=== PATIENT | female | born 1975 | race Two or more races ===

== ENCOUNTER 2018-01-07 22:02 | Emergency (ER) | payer SELFPAY ==
[~2018-01-07] VITALS: Ht 170.2 cm; Wt 108.9 kg
[2018-01-07 22:27] VITALS: BP 146/98
[2018-01-08] MEDS ORDERED: DEXAMETHASONE SOD PHOS 10MG/1ML VIAL INJ IM ONE (03:15)
[2018-01-08] MEDS ORDERED: cefTRIAXone SOD 1,000 MG VL IM ONE (03:15)
== END 2018-01-08 03:34 | disposition home or self-care (01) ==
LOC: ER 22:02
DX: J39.2 Other diseases of pharynx (principal); J02.9 Acute pharyngitis, unspecified; R09.81 Nasal congestion; E11.9 Type 2 diabetes mellitus without complications; I10 Essential (primary) hypertension
CPT/HCPCS: 71045; 81025; 82962; 96372; 99285; J0696; J1100

== ENCOUNTER 2023-08-14 09:06 | Emergency (ER) | payer MEDICAID ==
[~2023-08-14] VITALS: Ht 175.3 cm; Wt 90.9 kg
[2023-08-14] MEDS ORDERED: hydrALAZINE HCL 20 MG/ML VL IV ONE (09:30)
[2023-08-14 09:48] VITALS: BP 124/71
[2023-08-14 10:00] LABS: Basophils # (auto) 0.1 10 ^3/uL (0-0.2); Basophils % (auto) 0.8 % (0.0-2.0); Eosinophils # (auto) 0.1 10 ^3/uL (0-0.8); Eosinophils % (auto) 1.3 % (0.0-7.0); Hematocrit 45.1 % (36.0-46.0); Hemoglobin 15.6 g/dL (12.2-16.2); Lymphocytes # (auto) 1.9 10 ^3/uL (0.4-5.4); Lymphocytes % (auto) 28.9 % (10.0-50.0); Mean Corpuscular Hemoglobin 31.9 pg (28.0-32.0); Mean Corpuscular Hgb Conc. 34.6 g/dL (32.0-36.0); Mean Corpuscular Volume 92.4 fL (80.0-100.0); Monocytes # (auto) 0.5 10 ^3/uL (0-1.3); Monocytes % (auto) 7.5 % (0.0-12.0); Neutrophils # (auto) 4.1 10 ^3/uL (1.6-8.6); Neutrophils % (auto) 61.5 % (37.0-80.0); Nucleated Red Blood Cells % 0.1 %; Red Blood Cells 4.88 10^6/uL (4.0-5.20); Red Cell Distribution Width 12.6 % (11.8-14.3); White Blood Cell 6.7 10^3/uL (4.4-10.8)
[2023-08-14 10:21] LABS: Alanine Aminotransferase 21 U/L (7-40); Albumin 4.4 g/dL (3.2-4.8); Alkaline Phosphatase 96 U/L (46-116); Anion Gap 6 (5-15); Aspartate Aminotransferase 14 U/L (13-40); BUN/Creatinine Ratio 20.4 (10.0-20.0); Bilirubin, Total 0.4 mg/dL (0.2-1.0); Blood Urea Nitrogen 11 mg/dL (9-23); Calcium 9.3 mg/dL (8.5-10.1); Carbon Dioxide 27 mmol/L (20-30); Chloride 106 mmol/L (98-107); Glucose 129 mg/dL (74-106); Potassium 4.2 mmol/L (3.5-5.1); Sodium 139 mmol/L (136-145); Total Protein 6.6 g/dL (5.7-8.2)
[2023-08-14 11:30] VITALS: PULSE 68; RESP 17; O2SAT 98
== END 2023-08-14 11:35 | disposition home or self-care (01) ==
LOC: ER 09:06 → EDBD 09:06 → ER 11:35
DX: I16.0 Hypertensive urgency (principal); R42 Dizziness and giddiness; R55 Syncope and collapse; E11.9 Type 2 diabetes mellitus without complications; Z86.73 Personal history of transient ischemic attack (TIA), and cerebral infarction without residual deficits; Z98.51 Tubal ligation status; F17.210 Nicotine dependence, cigarettes, uncomplicated
CPT/HCPCS: 36415; 70450; 71046; 80053; 84484; 85025; 99284; J0360

== ENCOUNTER 2023-08-14 20:04 | Emergency (ER) | payer MEDICAID ==
[~2023-08-14] VITALS: Ht 167.6 cm; Wt 90.9 kg
[2023-08-14 20:16] VITALS: BP 176/96; PULSE 81; RESP 18; O2SAT 97
== END 2023-08-14 23:13 | disposition left against medical advice (07) ==
LOC: EDBD 20:04 → ER 20:07
DX: R51.9 Headache, unspecified (principal); Z53.21 Procedure and treatment not carried out due to patient leaving prior to being seen by health care provider

== ENCOUNTER 2023-08-24 11:08 | Emergency (ER) | payer MEDICAID ==
[~2023-08-24] VITALS: Ht 170.2 cm; Wt 86.3 kg
[2023-08-24 11:53] LABS: Basophils # (auto) 0 10 ^3/uL (0-0.2); Basophils % (auto) 0.4 % (0.0-2.0); Eosinophils # (auto) 0.1 10 ^3/uL (0-0.8); Eosinophils % (auto) 0.9 % (0.0-7.0); Hematocrit 44.6 % (36.0-46.0); Hemoglobin 15.7 g/dL (12.2-16.2); Lymphocytes # (auto) 2.5 10 ^3/uL (0.4-5.4); Lymphocytes % (auto) 22.1 % (10.0-50.0); Mean Corpuscular Hgb Conc. 35.2 g/dL (32.0-36.0); Mean Corpuscular Volume 90.9 fL (80.0-100.0); Monocytes # (auto) 0.6 10 ^3/uL (0-1.3); Monocytes % (auto) 4.9 % (0.0-12.0); Neutrophils # (auto) 8.1 10 ^3/uL (1.6-8.6); Neutrophils % (auto) 71.7 % (37.0-80.0); Nucleated Red Blood Cells % 0.1 %; Red Cell Distribution Width 12.4 % (11.8-14.3); White Blood Cell 11.3 10^3/uL (4.4-10.8)
[2023-08-24 12:39] LABS: Alanine Aminotransferase 23 U/L (7-40); Albumin 4.4 g/dL (3.2-4.8); Alkaline Phosphatase 105 U/L (46-116); Anion Gap 5 (5-15); Aspartate Aminotransferase 17 U/L (13-40); BUN/Creatinine Ratio 14.5 (10.0-20.0); Bilirubin, Total 0.5 mg/dL (0.2-1.0); Blood Urea Nitrogen 10 mg/dL (9-23); Calcium 9.3 mg/dL (8.7-10.4); Carbon Dioxide 28 mmol/L (20-30); Chloride 102 mmol/L (98-107); Glucose 185 mg/dL (74-106); Potassium 3.6 mmol/L (3.5-5.1); Sodium 135 mmol/L (136-145); Total Protein 6.8 g/dL (5.7-8.2)
[2023-08-24 14:30] VITALS: BP 140/90; PULSE 75; RESP 20; TEMP 98.2; O2SAT 96
== END 2023-08-24 14:33 | disposition home or self-care (01) ==
LOC: EDBD 11:08 → ER 11:08
DX: I16.0 Hypertensive urgency (principal); I10 Essential (primary) hypertension; R53.1 Weakness; R42 Dizziness and giddiness; E11.9 Type 2 diabetes mellitus without complications; F17.210 Nicotine dependence, cigarettes, uncomplicated; Z98.51 Tubal ligation status; Z86.73 Personal history of transient ischemic attack (TIA), and cerebral infarction without residual deficits
CPT/HCPCS: 36415; 80053; 85025; 93005